=== PATIENT | female | born 1985 | race Caucasian/White ===

== ENCOUNTER 2017-06-09 02:13 | Emergency (ER) | payer OTHER ==
[~2017-06-09 02:13] MED LIST: IBUP800 PO; OXYACE5T PO; Verotin-Gr Cap1 EACH PO
== END 2017-06-09 04:50 | disposition home or self-care (01) ==
LOC: ER 02:13
DX: J45.909 Unspecified asthma, uncomplicated (principal)
CPT/HCPCS: 94644

== ENCOUNTER → 2021-09-22 | Outpatient (CLI) | payer OTHER ==
[~2021-09-22] MED LIST changes: +ALBUTEROL0.63 MG/3 IH; +BUDESONIDE-FO10.2 G2 IH; +MONT4 PO
== END | disposition home or self-care (01) ==
LOC: LAB 15:02 → LAB SHORT 15:02
PROVIDERS: Nurse Practitioner Family
DX: Z12.4 Encounter for screening for malignant neoplasm of cervix (principal)
CPT/HCPCS: G0145

== ENCOUNTER → 2024-06-28 | Outpatient (CLI) | payer OTHER | LOC: LAB SHORT 10:34 → LAB 10:34 | DX: Z01.419 Encounter for gynecological examination (general) (routine) without abnormal findings (principal) ==